=== PATIENT | female | born 1995 | race Two or more races ===

== ENCOUNTER 2019-08-13 02:31 | Emergency (ER) | payer OTHER ==
[~2019-08-13] VITALS: Ht 157.5 cm; Wt 70.5 kg
[2019-08-13 05:10] VITALS: BP 115/84
== END 2019-08-13 06:38 | disposition home or self-care (01) ==
LOC: EMS 02:36
DX: S02.2XXA Fracture of nasal bones, initial encounter for closed fracture (principal); Y04.0XXA Assault by unarmed brawl or fight, initial encounter; Y93.89 Activity, other specified; Y92.89 Other specified places as the place of occurrence of the external cause; Y99.8 Other external cause status
CPT/HCPCS: 70160